=== PATIENT | male | born 2000 | race Caucasian/White ===

== ENCOUNTER 2019-05-26 11:17 | Emergency (ER) | payer MEDICAID ==
[~2019-05-26] VITALS: Ht 177.8 cm; Wt 79.5 kg
--- NOTE | 2019-05-26 12:57 | NUR ---
Pt transported via w/c to CT scan for imaging of the right lower extremity. Addendum: 05/26/19 at 1257 by LFISHER Pt to x-ray, not CT scan.
[2019-05-26 13:43] VITALS: BP 119/61
== END 2019-05-26 13:48 | disposition home or self-care (01) ==
LOC: ER 11:19
DX: S80.01XA Contusion of right knee, initial encounter (principal); X50.1XXA Overexertion from prolonged static or awkward postures, initial encounter; Y93.61 Activity, american tackle football; Y92.89 Other specified places as the place of occurrence of the external cause; Y99.9 Unspecified external cause status
CPT/HCPCS: 29505; 73564; 99283